=== PATIENT | male | born 1950 | race Caucasian/White ===

== ENCOUNTER 2016-09-24 14:22 | Emergency (ER) | payer BC, OTHER ==
[~2016-09-24 14:22] MED LIST changes: -ALLO300T2 PO; -ASPI325T4 PO; -CETI10TA84 PO; -FLAX100019 PO; -GABA-113 PO; -LOSA1TAB PO; -MULT-506 PO; -OXYC7.5T65 PO; -OXYCODONE PO; -PRD75 PO; -RIVA1.5T PO; -RIVA1TAB4 PO; -SYN88 PO; -VENL37.593 PO
[2016-09-24 14:31] VITALS: TEMP 37; Ht 177.8 cm
[2016-09-24] MEDS ORDERED: RIVA1TAB4 PO (15:14)
[2016-09-24] MEDS ORDERED: RIVA1.5T PO (15:14)
[2016-09-24] MEDS ORDERED: RIVAROXABAN TAB 15 MG TAB PO ONE ×2 (15:15→16:00)
--- NOTE | 2016-09-24 15:15 | EMERGENCY ROOM VISIT NOTE ---
History Report prepared by Kelsey: Mustapha Virk Under the Supervision of: Dr. Jey Longoria D.O. First contact with patient: 14:54 Chief Complaint: LEG PAIN,LEG INJURY Stated Complaint: PAIN/SWELLING IN LEFT LEG DVT History of Present Illness The patient is a 65 year old male who presents to the Emergency Room with complaints of persistent leg pain beginning 3 days ago. He notes he recently had left Achilles tendon surgery 2 weeks ago, and had his cast removed today. A DVT was noted on ultrasound after the cast removal. The patient notes he had a PE 17 years ago, and had been put on Coumadin at this time. He notes having a history of bladder cancer, kidney stones, and spinal fusion. Source of History: patient Onset: 3 days ago Position: leg (left) Quality: other (lep pain) Timing: other (persistent) Associated Symptoms: + weakness Review of Systems See HPI for pertinent positives & negatives. A total of 10 systems reviewed and were otherwise negative. Past Medical & Surgical Medical Problems: (1) History of bladder cancer (2) History of kidney stones Surgical Problems: (1) History of spinal fusion Family History No pertinent family history stated. Social History Smoking Status: Never Smoker Current/Historical Medications Scheduled Allopurinol (Zyloprim *), 100 MG PO DAILY Citalopram (Celexa *), 20 MG PO DAILY Cyclobenzaprine Hcl (Flexeril *), 5 MG PO BID Fenofibrate (Antara), 130 MG PO DAILY Hydrocodone/Acetaminophen 5MG/500MG (Vicodin 5MG/500MG), 1 TABLET PO Q4HR PRN Lisinopril (Zestril), 20 MG PO DAILY Rivaroxaban (Xarelto), 15 MG PO BID Rivaroxaban (Xarelto), 1 TAB PO DAILY [Roxicet], 5-325 PRN Allergies Coded Allergies: Latex1 -Allergic Contact Dermititis (Verified Allergy, Mild, RASH, 12/20/09 ) Sulfa Drugs (Verified Allergy, Unknown, RASH,BURNING, 07/14/09) Physical Exam Vital Signs Date Time Temp Pulse Resp B/P Pulse Ox O2 Delivery O2 Flow Rate FiO2 09/24/16 14:31 37.0 91 16 118/75 98 Physical Exam CONSTITUTIONAL/VITAL SIGNS: Reviewed / noted above. GENERAL: Non-toxic in appearance. INTEGUMENTARY: Warm, dry, and [place]. HEAD: Normocephalic. EYES: without scleral icterus or trauma. ENT/OROPHARYNX: clear and moist. LYMPHADENOPATHY/NECK: Is supple without lymphadenopathy or meningismus. RESPIRATORY: Lungs clear and equal. CARDIOVASCULAR: Regular rate and rhythm. GI/ABDOMEN: Soft and nontender. No organomegaly or pulsatile mass. No rebound or guarding. Normal bowel sounds. EXTREMITIES: Left lower extremity swelling. BACK: No CVA tenderness. NEUROLOGICAL: Intact without focal deficits. PSYCHIATRIC: normal affect. MUSCULOSKELETAL: Normally developed with good muscle tone. Medical Decision & Procedures ER Provider Diagnostic Interpretation: Radiology results as stated below per my review and radiologist interpretation: LEFT LOWER EXTREMITY VENOUS DOPPLER FINDINGS: Extensive thrombus seen within the superficial femoral vein, popliteal vein, peroneal, posterior tibial, and anterior tibial veins. The common femoral vein is patent. IMPRESSION: Acute DVT throughout the majority of the left lower extremity. Electronically signed by: Ilan Hung M.D. 09/24/2016 2:03 PM Dictated Date/Time: 09/24/2016 2:01 PM ED Course 1455: Previous medical records were reviewed. The patient was evaluated in room C11B. A complete history and physical examination was performed. 1505: Discussed the patient's case with Dr. Fine who recommends anticoagulation medication. 1515: Ordered Xarelto Tab 15 mg PO. 1520: On reevaluation, the patient is doing well. I discussed the results and findings with the patient. He verbalized agreement of the treatment plan. The patient was discharged home. Medical Decision Differential diagnosis: Etiologies such as DVT, musculoskeletal, infection, joint effusion, trauma, lymphedema, idiopathic, CHF, as well as others were entertained.. This is a 65-year-old male who presents to the ED with a chief complaint of left leg discomfort. He had an outpatient ultrasound that showed an extensive left leg DVT. The patient has had left Achilles tendon repair a little over 2 weeks ago. The cast was removed today. The patient does have history of PE in the past. He is currently not on anticoagulation. He states that he has been on Coumadin the past but does not want to be on Coumadin. I spoke with Dr. Fine about the patient. He does not feel anything other than anticoagulation is necessary. The patient was started on Xaralto. Consults Time Called: 1500 Consulting Physician: Dr. Fine, [facility] Returned Call: 1505 Discussed the patient's case with Dr. Fine who recommends anticoagulation medication. Impression Primary Impression: Deep vein thrombosis Scribe Attestation The scribe's documentation has been prepared under my direction and personally reviewed by me in its entirety. I confirm that the note above accurately reflects all work, treatment, procedures, and medical decision making performed by me. Departure Information Dispostion Home / Self-Care Prescriptions Rivaroxaban (XARELTO) 20 Mg Tab 1 TAB PO DAILY for 30 Days, #30 TAB 4 Refills Prov: Jey Longoria D.O. 09/24/16 Rivaroxaban (XARELTO) 15 Mg Tab 15 MG PO BID for 21 Days, #42 TAB Prov: Jey Longoria D.O. 09/24/16 Referrals Kavon Wu D.O. (PCP) Patient Instructions DVT, My [facility] Additional Instructions Take Xarelto 15mg twice a day for 3 weeks then 20mg daily for at least 3 months or as per you doctor. Follow-up with your doctor for further care and evaluation in 1-2 weeks. Return to the emergency department for worsening or new symptoms or any concerns. You have been examined and treated today on an emergency basis only. This is not a substitute for, or an effort to provide, complete comprehensive medical care. It is impossible to recognize and treat all injuries or illnesses in a single emergency department visit. It is therefore important that you follow up closely with your doctor. Call as soon as possible for an appointment.
--- NOTE | 2016-09-24 16:10 | Pharmacy Progress Note ---
ED Pharmacist Progress Note Date of Service: Sep 24, 2016. Patient wishes to be placed on Xarelto for treatment of lower extremity DVT as he states he has had difficulty with warfarin in the past. I contacted the patient's pharmacy [facility] in [place] to determine if the medication was covered. The pharmacist stated the 15mg BID x 21 days would roughly cost the patient $270.00 on his Rx plan. Apixaban is not covered by his insurance. The patient seemed willing to pay the higher rivera if necessary. I did provide the patient with a card from [employer] that may provide a 30-days supply for eligible patients. It is unclear if he is eligible. He will receive a dose of Xarelto 15mg here and will have a 15mg dose sent home with him to take in the AM as his pharmacy ([facility]) does not have this medication in stock. But they will order it and have it available tomorrow afternoon. Patient was counseled on s/s excess anticoagulation, avoidance of high risk activities (risks of fall or injury), drug interactions, action to take if unusual bleeding occurs. Written materials also provided.
[2016-09-24] MEDS ORDERED: FLAX100019 PO (16:14)
[2016-09-24] MEDS ORDERED: ASPI325T4 PO (16:14)
[2016-09-24] MEDS ORDERED: OXYCODONE PO (16:15)
[2016-09-24 16:24] VITALS: BP 115/71; PULSE 86; O2SAT 99
[2016-12-20] MEDS ORDERED: CETI10TA84 PO (16:14)
[2016-12-20] MEDS ORDERED: GABA-113 PO ×2 (16:14→18:50)
[2016-12-20] MEDS ORDERED: SYN88 PO (16:14)
[2016-12-20] MEDS ORDERED: MULT-506 PO (16:14)
[2016-12-20] MEDS ORDERED: LOSA1TAB PO (16:14)
== END 2016-09-24 16:26 | disposition home or self-care (01) ==
LOC: C.EDB 14:29 → C.EDC 16:26
DX: I82.4Z2 Acute embolism and thrombosis of unspecified deep veins of left distal lower extremity (principal); Z85.51 Personal history of malignant neoplasm of bladder; Z87.442 Personal history of urinary calculi; Z86.711 Personal history of pulmonary embolism; Z79.899 Other long term (current) drug therapy

== ENCOUNTER → 2016-09-24 | Outpatient (CLI) | payer BC, OTHER ==
[~2016-09-24] MED LIST: ALL100 PO; ALLO300T2 PO; ASPI325T4 PO; CETI10TA84 PO; CLX20 PO; FENO130C2 PO; FLAX100019 PO; FLX10 PO; GABA-113 PO; LISI-725 PO; LOSA1TAB PO; LRT5 PO; MULT-506 PO; OXYC7.5T65 PO; OXYCODONE PO; PRD75 PO; RIVA1.5T PO; RIVA1TAB4 PO; ROXICET; SYN88 PO; VENL37.593 PO
--- NOTE | 2016-09-24 14:05 | DIAGNOSTIC IMAGING REPORT ---
LEFT LOWER EXTREMITY VENOUS DOPPLER HISTORY: PAIN AND SWELLING IN LEFT LEG; R/O DVT STAT COMPARISON STUDY: None. FINDINGS: Extensive thrombus seen within the superficial femoral vein, popliteal vein, peroneal, posterior tibial, and anterior tibial veins. The common femoral vein is patent. IMPRESSION: Acute DVT throughout the majority of the left lower extremity. Electronically signed by: Ilan Hung M.D. 09/24/2016 2:03 PM Dictated Date/Time: 09/24/2016 2:01 PM
== END | disposition home or self-care (01) ==
LOC: C.ULTR 13:20
PROVIDERS: ATTEND Orthopaedic Surgery Sports Medicine
DX: Z48.89 Encounter for other specified surgical aftercare (principal); I82.402 Acute embolism and thrombosis of unspecified deep veins of left lower extremity

== ENCOUNTER → 2016-10-14 | Outpatient (CLI) | payer BC, OTHER ==
[~2016-10-14] MED LIST changes: -ALL100 PO; +ALLO300T2 PO; +ASPI325T4 PO; +CETI10TA84 PO; -CLX20 PO; -FENO130C2 PO; +FLAX100019 PO; -FLX10 PO; +GABA-113 PO; -LISI-725 PO; +LOSA1TAB PO; -LRT5 PO; +MULT-506 PO; +OXYC7.5T65 PO; +OXYCODONE PO; +PRD75 PO; +RIVA1.5T PO; +RIVA1TAB4 PO; -ROXICET; +SYN88 PO; +VENL37.593 PO
[2016-10-14 19:15] LABS: BLOOD UREA NITROGEN 21 mg/dl (7-18); BUN/CREATININE RATIO 14.7 (10-20); CALCIUM 9.1 mg/dl (8.5-10.1); CARBON DIOXIDE 27 mmol/L (21-32); CHLORIDE 106 mmol/L (98-107); GLUCOSE 86 mg/dl (70-99); POTASSIUM 3.9 mmol/L (3.5-5.1); SODIUM 141 mmol/L (136-145); URIC ACID 4.3 mg/dl (2.6-7.2)
[2016-10-14 19:29] LABS: PROSTATE SPECIFIC ANTIGEN 0.316 ng/ml (0.000-4.000)
== END | disposition home or self-care (01) ==
LOC: C.LABMFLN 08:56
PROVIDERS: ATTEND Family Medicine
DX: Z00.00 Encounter for general adult medical examination without abnormal findings (principal); I10 Essential (primary) hypertension; N20.0 Calculus of kidney; E03.9 Hypothyroidism, unspecified; Z12.5 Encounter for screening for malignant neoplasm of prostate; E29.1 Testicular hypofunction

== ENCOUNTER → 2016-10-21 | Outpatient (CLI) | payer BC, OTHER ==
[2016-10-21 13:34] LABS: URINE APPEARANCE CLEAR (CLEAR); URINE BILIRUBIN NEG (NEG); URINE COLOR YELLOW; URINE EPITHELIAL CELL AUTO 0-5 /lpf (0-5); URINE NITRITE NEG (NEG); URINE SPECIFIC GRAVITY 1.026 (1.000-1.030); UROBILINOGEN NEG (NEG); ZZUR CULT IF INDIC CLEAN CATCH NO
[2016-10-21 13:39] LABS: MANUAL MICROSCOPIC REQUIRED? NO; REVIEW REQ? NO
== END ==
LOC: C.LABMFLN 15:16
PROVIDERS: ATTEND Family Medicine
DX: N45.1 Epididymitis (principal)

== ENCOUNTER 2016-12-20 16:37 | Inpatient (IN) | payer BC, OTHER ==
[~2016-12-20] VITALS: Ht 177.8 cm; Wt 89.5 kg
[~2016-12-20 16:37] MED LIST changes: -ALLO300T2 PO; -OXYC7.5T65 PO; -PRD75 PO; -VENL37.593 PO
--- NOTE | 2016-12-20 18:28 | EMERGENCY ROOM VISIT NOTE ---
History Report prepared by Kelsey: Melissa Mendez Under the Supervision of: Dr. Steven Montero D.O. First contact with patient: 18:20 Chief Complaint: LEG PAIN,LEG INJURY Stated Complaint: BLOOD CLOTS IN LF LEG History of Present Illness The patient is a 65 year old male who presents to the Emergency Room with complaints of a known clot in his left leg. He reports he underwent surgery on his Achilles tendon 3 months ago. Since then, his left leg has become increasingly swollen. He started taking Xarelto 2 months ago and notes he has been very inactive since the surgery. This afternoon, he saw his PCP, who referred him to the [facility] for an ultrasound. After getting the ultrasound, his PCP called him at home and told him to go to an ER for further treatment. The patient rates the pain from his leg as a 7/10 in severity. He admits to some shortness of breath, but denies any chest pain. The ED charge nurse reports Dr. Mcmullen recommended the patient come to the ED for IV Heparin, after speaking with Dr. Fine at [facility]. Source of History: patient Onset: [employer] Position: leg (left) Symptom Intensity: 7/10 Timing: constant Associated Symptoms: + SOB, No chest pain Review of Systems See HPI for pertinent positives & negatives. A total of 10 systems reviewed and were otherwise negative. Past Medical & Surgical Medical Problems: (1) Deep vein blood clot of left lower extremity (2) Failure of outpatient treatment (3) History of bladder cancer (4) History of kidney stones (5) Left leg DVT Surgical Problems: (1) History of spinal fusion Social History Smoking Status: Never Smoker Alcohol Use: none Drug Use: none Marital Status: Housing Status: lives with family Occupation Status: employed Current/Historical Medications Scheduled Allopurinol (Zyloprim), 300 MG PO DAILY Cetirizine (Zyrtec), 10 MG PO DAILY Gabapentin (Neurontin), 300 MG PO QPM Levothyroxine Sodium (Synthroid), 88 MCG PO QAM Losartan Potassium (Cozaar), 12.5 MG PO QAM Multivitamin (Multivitamin), 1 TAB PO DAILY Rivaroxaban (Xarelto), 20 MG PO DAILY Venlafaxine Hcl (Venlafaxine Extended Rel), 37.5 MG PO QPM Allergies Coded Allergies: Sulfa Drugs (Verified Allergy, Unknown, RASH,BURNING, 09/24/16) Physical Exam Vital Signs Date Time Temp Pulse Resp B/P (MAP) Pulse Ox O2 Delivery O2 Flow Rate FiO2 12/20/16 19:21 74 12/20/16 19:00 75 18 126/83 99 Room Air 12/20/16 16:43 36.7 74 18 137/83 100 Physical Exam GENERAL: Patient is awake, alert, in no acute distress, patient is resting comfortably and showing no signs of anxiety EYES: The conjunctivae are clear. The pupils are round and reactive. EARS, NOSE, MOUTH AND THROAT: The nose is without any evidence of any deformity. Mucous membranes are moist tongue is midline NECK: The neck is nontender and supple. RESPIRATORY: Normal respiratory effort is noted there is no evidence of wheezing rhonchi or rales CARDIOVASCULAR: Regular rate and rhythm noted there no murmurs rubs or gallops normal S1 normal S2 GASTROINTESTINAL: The abdomen is soft. Bowel sounds are present in all quadrants. Abdomen is nontender MUSCULOSKELETAL/EXTREMITIES: There is no evidence of gross deformity full range of motion is noted in the hips and shoulders SKIN: Pedal edema in the left, lower extremity. Calf tenderness as well as tenderness along the course of the popliteal vein. There is no obvious evidence of any rash. There are no petechiae, pallor or cyanosis noted. NEUROLOGIC: Patient is awake alert and oriented x3 strength is symmetric patellar reflexes are 2+ bilaterally Medical Decision & Procedures Laboratory Results 12/20/16 19:05 Red Blood Count 4.40, Mean Corpuscular Volume 95.0, Mean Corpuscular Hemoglobin 32.5, Mean Corpuscular Hemoglobin Concent 34.2, Mean Platelet Volume 9.5, Neutrophils (%) (Auto) 51.0, Lymphocytes (%) (Auto) 38.0, Monocytes (%) (Auto) 9.0, Eosinophils (%) (Auto) 1.6, Basophils (%) (Auto) 0.1, Neutrophils # (Auto) 3.41, Lymphocytes # (Auto) 2.54, Monocytes # (Auto) 0.60, Eosinophils # (Auto) 0.11, Basophils # (Auto) 0.01 12/20/16 19:05 Test 12/20/16 19:05 White Blood Count 6.69 K/uL (4.8-10.8) Red Blood Count 4.40 M/uL (4.7-6.1) Hemoglobin 14.3 g/dL (14.0-18.0) Hematocrit 41.8 % (42-52) Mean Corpuscular Volume 95.0 fL (80-100) Mean Corpuscular Hemoglobin 32.5 pg (25-34) Mean Corpuscular Hemoglobin Concent 34.2 g/dl (32-36) Platelet Count 152 K/uL (130-400) Mean Platelet Volume 9.5 fL (7.4-10.4) Neutrophils (%) (Auto) 51.0 % Lymphocytes (%) (Auto) 38.0 % Monocytes (%) (Auto) 9.0 % Eosinophils (%) (Auto) 1.6 % Basophils (%) (Auto) 0.1 % Neutrophils # (Auto) 3.41 K/uL (1.4-6.5) Lymphocytes # (Auto) 2.54 K/uL (1.2-3.4) Monocytes # (Auto) 0.60 K/uL (0.11-0.59) Eosinophils # (Auto) 0.11 K/uL (0-0.5) Basophils # (Auto) 0.01 K/uL (0-0.2) RDW Standard Deviation 47.0 fL (36.4-46.3) RDW Coefficient of Variation 13.6 % (11.5-14.5) Immature Granulocyte % (Auto) 0.3 % Immature Granulocyte # (Auto) 0.02 K/uL (0.00-0.02) Prothrombin Time 13.2 SECONDS (9.0-12.0) Prothromb Time International Ratio 1.2 (0.9-1.1) Activated Partial Thromboplast Time 31.3 SECONDS (21.0-31.0) Partial Thromboplastin Ratio 1.2 Anion Gap 9.0 mmol/L (3-11) Est Creatinine Clear Calc Drug Dose 64.6 ml/min Estimated GFR () 66.8 Estimated GFR (Non- 57.7 BUN/Creatinine Ratio 15.4 (10-20) Calcium Level 9.1 mg/dl (8.5-10.1) Total Bilirubin 0.4 mg/dl (0.2-1) Direct Bilirubin 0.1 mg/dl (0-0.2) Aspartate Amino Transf (AST/SGOT) 23 U/L (15-37) Alanine Aminotransferase (ALT/SGPT) 31 U/L (12-78) Alkaline Phosphatase 65 U/L (45-117) Total Protein 7.3 gm/dl (6.4-8.2) Albumin 3.7 gm/dl (3.4-5.0) Hepatitis C Antibody Screen NEG (NEG) Laboratory results per my review. Medications Administered Medications (Trade) Dose Ordered Sig/Judy Route Start Time Stop Time Status Last Admin Dose Admin Heparin Sodium/ Dextrose 1 ea NOW STAT N/A 12/20/16 18:45 12/20/16 18:47 DC 12/20/16 20:09 1 EA Oxycodone HCl (Roxicodone Immediate Rel Tab) 5 mg NOW STAT PO 12/20/16 19:55 12/20/16 19:56 DC 12/20/16 20:09 5 MG Heparin Sodium/ Dextrose (Heparin 25,000 Unit/500ml D5W) 25,000 unit STK-MED ONCE .ROUTE 12/20/16 20:01 12/20/16 20:02 DC 12/20/16 20:09 25,000 UNIT Zolpidem Tartrate (Ambien Tab) 5 mg HSZ PRN PO 12/20/16 20:15 01/19/17 20:14 12/20/16 23:43 5 MG ED Course 1820: The patient was evaluated in room C4. A complete history and physical examination were performed. 1844: Heparin Sodium/Dextrose 1 ea NA. 1936: I discussed the patients case with Dr. Blue, [facility] Hospitalist. The patient will be further evaluated. 1944: I reevaluated the patient. He is resting comfortably but complains of pain. I will put in medication orders. I discussed my recommendation that he remain in the hospital for further evaluation and management and he verbalized complete understanding and agreement. 1954: Oxycodone HCl 5 mg PO. 2000: Heparin Sodium/Dextrose 56064 unit IV. Medical Decision Medication Reconciliation: I attest that I have personally reviewed the patient' s current medications list. Blood pressure screening: Patient was found to have normal blood pressure on screening and does not require follow-up. Prior records reviewed and summarized above. Triage Nursing notes reviewed. The patient's history was concerning for swelling and pain in the leg. Differential diagnosis: Etiologies such as DVT, musculoskeletal, infection, joint effusion, trauma, lymphedema, idiopathic, CHF, as well as others were entertained.. The patient is a 65-year-old male who presents to the emergency department for ongoing pain and DVT despite outpatient therapy. The patient was seen by his primary care physician and a vascular surgeon was consult. The patient was sent to the emergency department for IV heparin and inpatient therapy for ongoing DVT as well as failure of outpatient therapy. The patient was started on IV heparin in the emergency department. I discussed his case with the on-call [facility] hospitalist. They've agreed to evaluate the patient in emergency department for further management and disposition. Consults Time Called: 1933 Consulting Physician: Dr. Blue [facility] Hospitalist Returned Call: 1936 [facility] the [facility] The patient will be further evaluated. Impression Primary Impression: Deep vein thrombosis Additional Impression: Failure of outpatient treatment Scribe Attestation The scribe's documentation has been prepared under my direction and personally reviewed by me in its entirety. I confirm that the note above accurately reflects all work, treatment, procedures, and medical decision making performed by me. Departure Information Dispostion Being Evaluated By Hospitalist Referrals Wicho Mcmullen M.D. (PCP) Patient Instructions My [facility] Problem Qualifiers Primary Impression: Deep vein thrombosis DVT location: lower extremity Affected thrombotic vein of extremity: unspecified vein of extremity Chronicity: acute Laterality: left Qualified Codes: I82.402 - Acute embolism and thrombosis of unspecified deep veins of left lower extremity
[2016-12-20] MEDS ORDERED: RIVA1TAB4 PO (18:44)
[2016-12-20] MEDS ORDERED: GABA-113 PO (18:50)
[2016-12-20] MEDS ORDERED: VENL37.593 PO (18:50)
[2016-12-20] MEDS ORDERED: ALLO300T2 PO (18:50)
[2016-12-20 19:25] LABS: BASO % 0.1 %; BASO ABS # 0.01 K/uL (0-0.2); COMPLETE YES; EOS % 1.6 %; HEMATOCRIT 41.8 % (42-52); IG% 0.3 %; LYMPH ABS # 2.54 K/uL (1.2-3.4); MEAN CORPUSCULAR HEMOGLOBIN 32.5 pg (25-34); MEAN CORPUSCULAR HGB CONC 34.2 g/dl (32-36); MEAN PLATELET VOLUME 9.5 fL (7.4-10.4); PLATELET COUNT 152 K/uL (130-400); WHITE BLOOD COUNT 6.69 K/uL (4.8-10.8)
[2016-12-20 19:35] LABS: INR 1.2 (0.9-1.1); PARTIAL THROMBOPLASTIN RATIO 1.2; PROTHROMBIN TIME (PATIENT) 13.2 SECONDS (9.0-12.0)
[2016-12-20 19:43] LABS: BUN/CREATININE RATIO 15.4 (10-20); CALCIUM 9.1 mg/dl (8.5-10.1); CREATININE 1.3 mg/dl (0.60-1.40); POTASSIUM 3.8 mmol/L (3.5-5.1)
[2016-12-20] MEDS ORDERED: OXYCODONE HCL IR 5 MG TAB (IMMEDIATE RELEASE) PO STA (19:55)
[2016-12-20] MEDS ORDERED: HEPARIN 25000 UNIT/500 ML D5W ONE (20:01)
[2016-12-20] MEDS ORDERED: ONDANSETRON INJ 2 MG/ML 2 ML VIAL IV PRN (20:15)
[2016-12-20] MEDS ORDERED: POLYETHYLENE (MIRALAX) 17 GM PACK PO PRN (20:15)
[2016-12-20] MEDS ORDERED: ALUMINUM/MAGNESIUM/SIMETH (MAALOX MAX) 30 ML UDC PO PRN (20:15)
[2016-12-20] MEDS ORDERED: ACETAMINOPHEN 325 MG TAB PO PRN (20:15)
[2016-12-20] MEDS ORDERED: MAGNESIUM HYDROXIDE SUSP 30 ML UDC PO PRN (20:15)
--- NOTE | 2016-12-20 20:20 | History and Physical ---
History & Physical Date & Time of Service: Dec 20, 2016 at 20:20 Chief Complaint: Blood Clots In Lf Leg Primary Care Physician: Wicho Mcmullen M.D. History of Present Illness Source: patient, family Mr. 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 He initially had left Achilles tendon surgery around September 07 of this year. He had a cast placed, and after this was removed, he noticed some swelling , so came to the ED on September 24. He was diagnosed with a DVT, and started on Xarelto, which he reports he was compliant with. Since being on Xarelto, he has noticed persistent swelling of the left ankle, and has not noticed much improvement. He spoke to his PCP Dr Mcmullen, was unable to be seen by an outpatient accounts adjustable clerk, and earlier today had a repeat ultrasound of the leg at [facility]. After returning home he was called and informed of the ultrasound showed a DVT had worsened, and was advised to come to the ER at our hospital. Dr. Mcmullen and discussed this with Dr. Fine who recommended placing the patient on a heparin drip. He denies any shortness of breath, chest pain, any other symptoms of PE. He reports he was very compliant with his Xarelto. Past Medical/Surgical History Medical Problems: (1) Deep vein blood clot of left lower extremity (2) Failure of outpatient treatment (3) History of bladder cancer (4) History of kidney stones (5) Left leg DVT Surgical Problems: (1) History of spinal fusion (2) shoulder surgery x 3 (3) Achilles tendon surgery Family History No pertinent family history. He denies any other people in his family having blood clots or PE. Social History Smoking Status: Never Smoker Alcohol Use: socially Drug Use: none Marital Status: Occupational Status: employed Immunizations History of Influenza Vaccine: Yes Influenza Vaccine Date: Feb 17, 2008 History of Tetanus Vaccine?: No History of Pneumococcal: Yes Pneumococcal Date: Nov 17, 2003 History of Hepatitis B Vaccine: Yes Hepatitis Immunization Date: Nov 16, 1992 Multi-Drug Resistant Organisms History of MDRO: No Allergies Coded Allergies: Sulfa Drugs (Verified Allergy, Unknown, RASH,BURNING, 09/24/16) Home Medications Scheduled Allopurinol (Zyloprim), 300 MG PO DAILY Cetirizine (Zyrtec), 10 MG PO DAILY Gabapentin (Neurontin), 300 MG PO QPM Levothyroxine Sodium (Synthroid), 88 MCG PO QAM Losartan Potassium (Cozaar), 12.5 MG PO QAM Multivitamin (Multivitamin), 1 TAB PO DAILY Rivaroxaban (Xarelto), 20 MG PO DAILY Venlafaxine Hcl (Venlafaxine Extended Rel), 37.5 MG PO QPM Review of Systems See HPI for pertinent positives & negatives. A total of 10 systems reviewed and were otherwise negative. Physical Exam Vital Signs Date Time Temp Pulse Resp B/P (MAP) Pulse Ox O2 Delivery O2 Flow Rate FiO2 12/20/16 19:21 74 12/20/16 19:00 75 18 126/83 99 Room Air 12/20/16 16:43 36.7 74 18 137/83 100 General Appearance: WD/WN, + mild distress Head: normocephalic, atraumatic Eyes: normal inspection, PERRL ENT: hearing grossly normal Neck: supple, no JVD Respiratory/Chest: lungs clear, normal breath sounds, no respiratory distress Cardiovascular: regular rate, rhythm, no murmur Abdomen/GI: normal bowel sounds, non tender, soft Back: no CVA tenderness, no muscle spasm, normal range of motion Extremities/Musculoskelatal: + pertinent finding (Left pedal edema up to ankle , pitting +2. No evidence of cellulitis. ) Neurologic/Psych: alert, normal mood/affect, normal reflexes, oriented x 3 Skin: warm/dry Diagnostics Laboratory Results Results Past 24 Hours Test 12/20/16 19:05 Range/Units White Blood Count 6.69 4.8-10.8 K/uL Red Blood Count 4.40 4.7-6.1 M/uL Hemoglobin 14.3 14.0-18.0 g/dL Hematocrit 41.8 42-52 % Mean Corpuscular Volume 95.0 80-100 fL Mean Corpuscular Hemoglobin 32.5 25-34 pg Mean Corpuscular Hemoglobin Concent 34.2 32-36 g/dl Platelet Count 152 130-400 K/uL Mean Platelet Volume 9.5 7.4-10.4 fL Neutrophils (%) (Auto) 51.0 % Lymphocytes (%) (Auto) 38.0 % Monocytes (%) (Auto) 9.0 % Eosinophils (%) (Auto) 1.6 % Basophils (%) (Auto) 0.1 % Neutrophils # (Auto) 3.41 1.4-6.5 K/uL Lymphocytes # (Auto) 2.54 1.2-3.4 K/uL Monocytes # (Auto) 0.60 0.11-0.59 K/uL Eosinophils # (Auto) 0.11 0-0.5 K/uL Basophils # (Auto) 0.01 0-0.2 K/uL RDW Standard Deviation 47.0 36.4-46.3 fL RDW Coefficient of Variation 13.6 11.5-14.5 % Immature Granulocyte % (Auto) 0.3 % Immature Granulocyte # (Auto) 0.02 0.00-0.02 K/uL Prothrombin Time 13.2 9.0-12.0 SECONDS Prothromb Time International Ratio 1.2 0.9-1.1 Activated Partial Thromboplast Time 31.3 21.0-31.0 SECONDS Partial Thromboplastin Ratio 1.2 Sodium Level 141 136-145 mmol/L Potassium Level 3.8 3.5-5.1 mmol/L Chloride Level 105 98-107 mmol/L Carbon Dioxide Level 27 21-32 mmol/L Anion Gap 9.0 3-11 mmol/L Blood Urea Nitrogen 20 7-18 mg/dl Creatinine 1.30 0.60-1.40 mg/dl Est Creatinine Clear Calc Drug Dose 64.6 ml/min Estimated GFR () 66.8 Estimated GFR (Non- 57.7 BUN/Creatinine Ratio 15.4 10-20 Random Glucose 80 70-99 mg/dl Calcium Level 9.1 8.5-10.1 mg/dl Total Bilirubin 0.4 0.2-1 mg/dl Direct Bilirubin 0.1 0-0.2 mg/dl Aspartate Amino Transf (AST/SGOT) 23 15-37 U/L Alanine Aminotransferase (ALT/SGPT) 31 12-78 U/L Alkaline Phosphatase 65 45-117 U/L Total Protein 7.3 6.4-8.2 gm/dl Albumin 3.7 3.4-5.0 gm/dl Diagnostic Radiology DVT REPORT FROM ED VISIT 09/24/16 - I am awaiting report from [employer] LEFT LOWER EXTREMITY VENOUS DOPPLER FINDINGS: Extensive thrombus seen within the superficial femoral vein, popliteal vein, peroneal, posterior tibial, and anterior tibial veins. The common femoral vein is patent. IMPRESSION: Acute DVT throughout the majority of the left lower extremity. Impression Assessment and Plan 65 yo M with known bladder Ca, recent achilles tendon surgery, causing a provoked DVT, which has now failed outpatient treatment with Xarelto. Deep vein thrombus of the Left extremity, failed outpatient tx - Will place pt on Heparin drip - May require an IVC filter, if so pt is NPO for tomorrow - Consulted Dr Fine - Elevate extremity overnight - DC Xarelto today Anxiety / Depression - Continue Venlafaxine HTN - Continue Losartan Peripheral neuropathy - Continue gabapentin VTE: Heparin drip CODE STATUS: Full Dispo: Med Surg Attending Addendum: I have physically seen and examined this patient, have supervised the medical residents activities, and agree with the H&P as noted above with the following exceptions: NONE The patient is awake, well-developed and adequately nourished, alert and oriented 3, normocephalic and atraumatic, lying in bed and in no acute distress. HEENT--PERRL, EOMI, mucous membranes and oropharynx normal. Neck--supple, no JVD or bruits, thyroid normal, trachea midline, no adenopathy. Heart--normal S1 and S2, no extra beats, no murmurs, rubs or gallops. Lungs--clear bilaterally with good air movement, no respiratory distress, no accessory muscle use. Abdomen--normal bowel sounds and soft, nontender and nondistended, no hernias or masses, no organomegaly. Extremities/Dermatologic--right lower extremity-no cyanosis, clubbing or edema. Left lower extremity with swelling, mild erythema and tenderness. Neurologic--cranial nerves II through XII grossly intact, motor and sensory examination normal. Rheumatologic--normal range of motion, nontender, muscles and joints. Psychiatric--normal affect. Assessment and Plan: 1. Left lower extremity DVT that has failed outpatient therapy with Xarelto-- patient will be admitted to the hospital and placed on heparin IV infusion standard dose with bolus per protocol. Consult Dr. Fine, who has asked the patient be admitted. DC Xarelto Continue losartan for hypertension. Continue venlafaxine for anxiety and depression. Continue gabapentin for peripheral neuropathy. VTE Prophylaxis VTE Risk Assessment Done? Y/N: Yes Risk Level: High Resident Tracking Resident Involvement: Resident Care Provided Care Provided: Adult Hospital Medicine
[2016-12-20 20:28] VITALS: BP 126/83; PULSE 74; TEMP 36.7; Ht 177.8 cm; Wt 89.5 kg
[2016-12-20] MEDS ORDERED: GABAPENTIN 300 MG CAP PO SCH (21:00)
[2016-12-20] MEDS ORDERED: IV FLUIDS COMPLETED PRN (21:00)
[2016-12-20] MEDS: GABAPENTIN 300 MG CAP PO SCH ×2 (21:00→22:30)
[2016-12-20] MEDS: VENLAFAXINE HCL XR 37.5 MG CAPXR PO SCH ×2 (21:00→22:30)
[2016-12-20] MEDS ORDERED: OXYCODONE/ACETAMINOPHEN 5-325 TAB PO PRN (21:45)
[2016-12-20 21:49] VITALS: BP 154/92; PULSE 78; TEMP 36.7; O2SAT 98
[2016-12-20 23:03] VITALS: BP 118/74; PULSE 85; TEMP 36.6; O2SAT 94
[2016-12-20] MEDS: HEPARIN 25,000 UNIT/500ML D5W 500 ML IV PRN (23:10)
[2016-12-20 23:17] LABS: URINE APPEARANCE CLEAR (CLEAR); URINE BILIRUBIN NEG (NEG); URINE COLOR YELLOW; URINE NITRITE NEG (NEG); URINE SPECIFIC GRAVITY 1.018 (1.000-1.030); UROBILINOGEN NEG (NEG)
[2016-12-20 23:18] LABS: MANUAL MICROSCOPIC REQUIRED? NO; REVIEW REQ? NO
[2016-12-20] MEDS: ZOLPIDEM TARTRATE 5 MG TAB PO PRN (23:43)
[2016-12-21 02:36] LABS: PARTIAL THROMBOPLASTIN RATIO 2.2
[2016-12-21] MEDS: LEVOTHYROXINE 88 MCG TAB PO SCH (05:27)
[2016-12-21] MEDS: HEPARIN 25,000 UNIT/500ML D5W 500 ML IV PRN ×6 (07:05→23:18)
[2016-12-21 07:30] VITALS: BP 104/68; PULSE 78; TEMP 36.7; O2SAT 95
[2016-12-21 07:30] LABS: HEMATOCRIT 39.1 % (42-52); MEAN CELL VOLUME 95.8 fL (80-100); MEAN CORPUSCULAR HEMOGLOBIN 32.8 pg (25-34); MEAN CORPUSCULAR HGB CONC 34.3 g/dl (32-36); MEAN PLATELET VOLUME 9.9 fL (7.4-10.4); PLATELET COUNT 147 K/uL (130-400); RED BLOOD COUNT 4.08 M/uL (4.7-6.1); WHITE BLOOD COUNT 6.23 K/uL (4.8-10.8)
[2016-12-21 08:04] LABS: PARTIAL THROMBOPLASTIN RATIO 2.7
--- NOTE | 2016-12-21 08:42 | Family Medicine Progress Note ---
Progress Note Date of Service Dec 21, 2016. Subjective Pt evaluation today including: conversation w/ patient, conversation w/ family , physical exam, chart review, lab review, review of studies, review of inpatient medication list Patient frustrated with DVT in leg and expressing discomfort in left lower calf in the form of fullness/cramping, but no paresthesias, burning, sharp pain, coldness, paralysis. He is also describing pain in left groin, but unsure if this is related to the same clot. Otherwise, patient well. He denies CP or SOB. He has been able to ambulate to and from the bed to the bathroom without issue/ symptom onset. No fevers or skin changes. Actually feels swelling in left leg has improved since being commenced on heparin drip. ROS unremarkable except as noted above. Objective Vital Signs Date Time Temp Pulse Resp B/P (MAP) Pulse Ox O2 Delivery O2 Flow Rate FiO2 12/21/16 07:30 36.7 78 19 104/68 (80) 95 Room Air 12/20/16 23:35 Room Air 12/20/16 23:03 36.6 85 15 118/74 (89) 94 Room Air 12/20/16 21:49 36.7 78 18 154/92 (112) 98 Room Air 12/20/16 21:04 36.7 78 16 134/70 99 Room Air 12/20/16 20:28 36.7 74 18 126/83 12/20/16 19:21 74 12/20/16 19:00 75 18 126/83 99 Room Air 12/20/16 16:43 36.7 74 18 137/83 100 Physical Exam General Appearance: WD/WN, no apparent distress ENT: hearing grossly normal Neck: supple Respiratory/Chest: lungs clear, normal breath sounds, no respiratory distress, no accessory muscle use Cardiovascular: regular rate, rhythm, no murmur, + normal peripheral pulses Abdomen: normal bowel sounds, non tender, soft Extremities: normal range of motion, normal capillary refill, + calf tenderness (L side), + pedal edema (left foot) Neurologic/Psychiatric: no motor/sensory deficits, alert, normal mood/affect Skin: normal color, warm/dry, no rash Lymphatic: no adenopathy Laboratory Results Results Past 24 Hours Test 12/21/16 07:01 12/21/16 15:30 12/21/16 22:14 Range/Units White Blood Count 6.23 4.8-10.8 K/uL Red Blood Count 4.08 4.7-6.1 M/uL Hemoglobin 13.4 14.0-18.0 g/dL Hematocrit 39.1 42-52 % Mean Corpuscular Volume 95.8 80-100 fL Mean Corpuscular Hemoglobin 32.8 25-34 pg Mean Corpuscular Hemoglobin Concent 34.3 32-36 g/dl RDW Standard Deviation 48.3 36.4-46.3 fL RDW Coefficient of Variation 13.8 11.5-14.5 % Platelet Count 147 130-400 K/uL Mean Platelet Volume 9.9 7.4-10.4 fL Activated Partial Thromboplast Time 71.4 75.5 67.8 21.0-31.0 SECONDS Partial Thromboplastin Ratio 2.7 2.9 2.6 Assessment and Plan 65 yo M with previous h/o of PE and DVT (2 previous occasions) admitted with provoked DVT secondary to recent Achilles tendon surgery, with worsening clot per imaging, despite compliant outpatient treatment with Xarelto. DVT of the left lower extremity Clot enlarged despite outpatient therapy with Xarelto. Not candidate for IVC filter as per vascular surgery- recs appreciated. - Continue Heparin drip - Will discuss transition of Pradaxa (direct thrombin inhibitor rather than 10a inhibitor like Xarelto) vs. warfarin vs. enoxaparin 1.5mg/kg with patient tomorrow - Discussed these options with Dr. Francis - Percocet 5/325mg q4h and IV morphine 4mg q4h PRN pain Anxiety / Depression - Venlafaxine HTN - Losartan Hypothyroidism - Levothyroxine Peripheral neuropathy - Gabapentin Gout - Allopurinol VTE PPx - Heparin drip CODE STATUS: Full Resident Physician Supervision Note: I interviewed and examined the patient. Discussed with Dr. Munguia and agree with findings and plan as documented in the note. Any exceptions or clarifications are listed here: None Documented By: Edilberto White leg pain still fairly bad. no filter. R2 d/w dr francis. hopefully can use pradaxa. vitals noted nad breathing unlabored no pallor or icterus recurrenet DVT failed xarelto - can hopefully use pradaxa. for now heparin, pain control. home once pain controlled. Continued [facility] stay due to: inadequate oral pain control, multiple IV medications needed Discharge planning: home Resident Tracking Resident Involvement: Resident Care Provided Care Provided: Adult Hospital Medicine
--- NOTE | 2016-12-21 08:45 | Medical Consult ---
Consultation Note Date of Service Dec 21, 2016. Consultation Note Discussed this patient with Dr Mcmullen. This patient appears to have not been adequately treated while on Xarelto. Would recommend he be placed on heparin and converted to coumadin. There is no indication for a filter. In this case i believe the Xarelto did not keep him adequately anticoagulated. We have seen a few failed Xarelto treated patients recently, especially if they are overweight. If you would like a formal consult and the patient seen, we can do it friday. Thank you
[2016-12-21] MEDS: ALLOPURINOL 300 MG TAB PO SCH (09:00)
[2016-12-21] MEDS: CETIRIZINE HCL 10 MG TAB PO SCH (09:00)
[2016-12-21] MEDS: LOSARTAN POTASSIUM 25 MG TAB PO SCH (09:00)
[2016-12-21] MEDS: MULTIVITAMIN TAB PO SCH (09:00)
[2016-12-21] MEDS ORDERED: RIVAROXABAN 10 MG TAB PO SCH (09:00)
[2016-12-21] MEDS ORDERED: OXYCODONE/ACETAMINOPHEN 5-325 TAB PO ONE (12:54)
[2016-12-21 15:37] VITALS: BP 113/72; PULSE 84; TEMP 36.9; O2SAT 94
[2016-12-21 16:08] LABS: PARTIAL THROMBOPLASTIN RATIO 2.9
[2016-12-21] MEDS ORDERED: MoRPHine SULFATE 4 MG/ML 1 ML CARP\\VIAL IV STA (18:29)
[2016-12-21] MEDS: OXYCODONE/ACETAMINOPHEN 5-325 TAB PO PRN ×2 (18:36→23:25)
[2016-12-21] MEDS: VENLAFAXINE HCL XR 37.5 MG CAPXR PO SCH (21:20)
[2016-12-21] MEDS: GABAPENTIN 300 MG CAP PO SCH (21:21)
[2016-12-21 23:05] LABS: PARTIAL THROMBOPLASTIN RATIO 2.6
[2016-12-21 23:06] VITALS: BP 121/79; PULSE 72; TEMP 36.8; O2SAT 94
[2016-12-21] MEDS: ZOLPIDEM TARTRATE 5 MG TAB PO PRN (23:25)
[2016-12-22] MEDS: MoRPHine SULFATE 4 MG/ML 1 ML CARP\\VIAL IV PRN (02:47)
[2016-12-22] MEDS: HEPARIN 25,000 UNIT/500ML D5W 500 ML IV PRN ×3 (02:52→15:19)
[2016-12-22 05:07] LABS: PARTIAL THROMBOPLASTIN RATIO 2.6
[2016-12-22] MEDS: LEVOTHYROXINE 88 MCG TAB PO SCH (05:45)
[2016-12-22 07:15] VITALS: O2SAT 94
[2016-12-22 07:21] VITALS: BP 114/73; PULSE 76; TEMP 36.8; O2SAT 95
[2016-12-22] MEDS: ALLOPURINOL 300 MG TAB PO SCH (08:48)
[2016-12-22] MEDS: OXYCODONE/ACETAMINOPHEN 5-325 TAB PO PRN ×3 (08:48→20:42)
[2016-12-22] MEDS: LOSARTAN POTASSIUM 25 MG TAB PO SCH (08:49)
[2016-12-22] MEDS: CETIRIZINE HCL 10 MG TAB PO SCH (08:49)
[2016-12-22] MEDS: MULTIVITAMIN TAB PO SCH (08:49)
[2016-12-22] MEDS ORDERED: TRAMADOL HCL 50 MG TAB PO STA (11:43)
[2016-12-22] MEDS ORDERED: TRAMADOL HCL 50 MG TAB PO PRN ×2 (11:45→19:45)
[2016-12-22 15:06] VITALS: BP 117/75; PULSE 80; TEMP 36.8; O2SAT 93
--- NOTE | 2016-12-22 16:22 | Family Medicine Progress Note ---
Progress Note Date of Service Dec 22, 2016. Subjective Pt evaluation today including: conversation w/ patient, conversation w/ family , physical exam, chart review, lab review, review of studies, review of inpatient medication list Patient had a difficult night in terms of sleep, as his leg was causing him significant discomfort. He feels that the Percocet was not helpful, but that the morphine did help reduce the severity of pain significantly. He has been ambulating to and from the washroom without issue, but not in the l[place]. He feels hindered by the IV pole, and as such, plans to ambulate more once heparin is discontinued. Decision of what anticoagulant he wants was pending, up until the evening. He denies, chest pain, dyspnea, palpitations, skin changes. His greatest source of pain is along the left groin, which is just proximal to the DVT. Pain in the lower leg seems to be contributed to by both the surgery and the associated swelling. ROS was unremarkable aside from that noted above. Objective Vital Signs Date Time Temp Pulse Resp B/P (MAP) Pulse Ox O2 Delivery O2 Flow Rate FiO2 12/22/16 15:06 36.8 80 16 117/75 (89) 93 Room Air 12/22/16 07:21 36.8 76 17 114/73 (87) 95 Room Air 12/22/16 07:15 94 Room Air 12/22/16 00:30 Room Air 12/21/16 23:06 36.8 72 16 121/79 (93) 94 Room Air Physical Exam General Appearance: WD/WN, no apparent distress ENT: hearing grossly normal Neck: supple Respiratory/Chest: lungs clear, normal breath sounds, no respiratory distress, no accessory muscle use Cardiovascular: regular rate, rhythm, no JVD, no murmur, + normal peripheral pulses Abdomen: normal bowel sounds, non tender, soft Extremities: normal inspection, + calf tenderness, + pedal edema, + swelling Neurologic/Psychiatric: alert, normal mood/affect, oriented x 3 Skin: normal color, warm/dry, no rash Lymphatic: no adenopathy Laboratory Results Results Past 24 Hours Test 12/21/16 22:14 12/22/16 04:44 Range/Units Activated Partial Thromboplast Time 67.8 66.6 21.0-31.0 SECONDS Partial Thromboplastin Ratio 2.6 2.6 Assessment and Plan 65 yo M with previous h/o of PE and DVT (2 previous occasions) admitted with provoked DVT secondary to recent Achilles tendon surgery, with worsening clot per imaging, despite compliant outpatient treatment with Xarelto. DVT of the left lower extremity Clot enlarged despite outpatient therapy with Xarelto. Not candidate for IVC filter as per vascular surgery- recs appreciated. Originally on heparin drip with transition to dabigatran, suggested as a reasonable option by Dr. Floyd since a direct thrombin inhibitor rather than 10a inhibitor like Xarelto - Discontinue Heparin drip 3 hours prior to commencing dabigatran q12h at 8pm Pain management Not well controlled with Tylenol or Percocet. Recently added tramadol. - Percocet 5/325mg q4h or tramadol 50mg q6h PRN pain - IV morphine 4mg q4h PRN pain as back up - TEDS ordered to aid with pain secondary to swelling. - Orthotics consulted - If pain not controlled, consider increased dose of tramadol prior to switching Anxiety / Depression - Venlafaxine HTN - Losartan Hypothyroidism - Levothyroxine Peripheral neuropathy - Gabapentin Gout - Allopurinol VTE PPx - Heparin drip CODE STATUS: Full Resident Physician Supervision Note: I interviewed and examined the patient. Discussed with [Nilda] and agree with findings and plan as documented in the note. Any exceptions or clarifications are listed here: [None] Documented By: Edilberto Tidwell pain still uncontrolled. R2 d/w anticoag physician and pradaxa reasonable - after considering this vs lovenox vs lovenox/bridge to coumadin - he opts for pradaxa. viatls noted nad breathing unlabored ongoing LLE edema no erythema DVT - anticoagulation transition to pradaxa. safe/stable but pain uncontrolled. initiate compression, increase tramadol. home once pain reasonable. extensive discussions as always. Continued [facility] stay due to: inadequate oral pain control Discharge planning: home Resident Tracking Resident Involvement: Resident Care Provided Care Provided: Adult Hospital Medicine
[2016-12-22] MEDS: TRAMADOL HCL 50 MG TAB PO PRN ×2 (18:35→22:46)
[2016-12-22] MEDS: GABAPENTIN 300 MG CAP PO SCH (20:41)
[2016-12-22] MEDS: DABIGATRAN ELEXILATE 75 MG CAP PO SCH (20:42)
[2016-12-22] MEDS: VENLAFAXINE HCL XR 37.5 MG CAPXR PO SCH (20:42)
[2016-12-22] MEDS: ZOLPIDEM TARTRATE 5 MG TAB PO PRN (20:47)
[2016-12-22 23:05] VITALS: BP 114/74; PULSE 72; TEMP 36.9; O2SAT 96
[2016-12-23] MEDS: MoRPHine SULFATE 4 MG/ML 1 ML CARP\\VIAL IV PRN (00:14)
[2016-12-23] MEDS: LEVOTHYROXINE 88 MCG TAB PO SCH (05:28)
[2016-12-23 07:12] VITALS: BP 113/69; PULSE 68; TEMP 36.6; O2SAT 95
[2016-12-23] MEDS: OXYCODONE/ACETAMINOPHEN 5-325 TAB PO PRN (07:49)
[2016-12-23] MEDS: MULTIVITAMIN TAB PO SCH (08:42)
[2016-12-23] MEDS: ALLOPURINOL 300 MG TAB PO SCH (08:43)
[2016-12-23] MEDS: DABIGATRAN ELEXILATE 75 MG CAP PO SCH ×2 (08:43→21:34)
[2016-12-23] MEDS: CETIRIZINE HCL 10 MG TAB PO SCH (08:43)
[2016-12-23] MEDS: LOSARTAN POTASSIUM 25 MG TAB PO SCH (08:48)
[2016-12-23] MEDS ORDERED: HEPARIN 25000 UNIT/ D5W 500 ML (PHARMACY PREPARED) IV PRN ×2 (10:45)
[2016-12-23] MEDS: OXYCODONE/ACETAMINOPHEN 7.5-325 TAB PO PRN ×3 (12:54→21:34)
[2016-12-23 15:02] VITALS: BP 129/77; PULSE 73; TEMP 37; O2SAT 93
--- NOTE | 2016-12-23 16:05 | Family Medicine Progress Note ---
Progress Note Date of Service Dec 23, 2016. Subjective Pt evaluation today including: conversation w/ patient, physical exam, chart review, lab review, review of studies Pain: patient states that his pain is a 5-7 out of 10 Voiding: no voiding problems, no incontinence Patient states that he has continued 5-7 out of 10 pain this morning, worst under his right thigh but also over his right calf along with burning over the dorsum of his foot. He states that his hydrocele is improving, and that overall he is feeling better but still having some significant pain. Constitutional: No fever, No chills Respiratory: No cough, No shortness of breath Cardiovascular: No chest pain Abdomen: No pain, No nausea, No vomiting Musculoskeletal: + muscle pain, + swelling, + calf pain Neurologic: No weakness Skin: No rash Medications Current Inpatient Medications Medications (Trade) Dose Ordered Sig/Judy Route Start Time Stop Time Status Last Admin Dose Admin Al Hydrox/Mg Hydrox/Simethicone (Maalox Max Susp) 15 ml Q4H PRN PO 12/20/16 20:15 01/19/17 20:14 Magnesium Hydroxide (Milk Of Magnesia Susp) 30 ml Q6H PRN PO 12/20/16 20:15 01/19/17 20:14 Polyethylene (Miralax Powder Packet) 17 gm DAILY PRN PO 12/20/16 20:15 01/19/17 20:14 Zolpidem Tartrate (Ambien Tab) 5 mg HSZ PRN PO 12/20/16 20:15 01/19/17 20:14 12/22/16 20:47 5 MG Ondansetron HCl (Zofran Inj) 4 mg Q6H PRN IV 12/20/16 20:15 01/19/17 20:14 12/22/16 05:47 4 MG Allopurinol (Zyloprim Tab) 300 mg DAILY PO 12/21/16 09:00 01/20/17 08:59 12/23/16 08:43 300 MG Cetirizine HCl (zyrTEC TAB) 10 mg DAILY PO 12/21/16 09:00 01/20/17 08:59 12/23/16 08:43 10 MG Gabapentin (Neurontin Cap) 300 mg QPM PO 12/20/16 21:00 01/19/17 20:59 12/22/16 20:41 300 MG Levothyroxine Sodium (Synthroid Tab) 88 mcg DAILYBB PO 12/21/16 06:00 01/20/17 06:59 12/23/16 05:28 88 MCG Losartan Potassium (coZAAR TAB) 12.5 mg QAM PO 12/21/16 09:00 01/20/17 08:59 12/23/16 08:48 12.5 MG Multivitamins (Multivitamin Tab) 1 tab DAILY PO 12/21/16 09:00 01/20/17 08:59 12/23/16 08:42 1 TAB Venlafaxine HCl (effeXOR EXTENDED REL CAP) 37.5 mg QPM PO 12/20/16 21:00 01/19/17 20:59 12/22/16 20:42 37.5 MG Miscellaneous (Iv Fluids Completed) 1 ea PRN PRN N/A 12/20/16 21:00 12/20/17 20:59 Morphine Sulfate (MoRPHine SULFATE INJ) 4 mg Q4H PRN IV 12/21/16 18:30 01/04/17 18:29 12/23/16 00:14 4 MG Dabigatran (Pradaxa Cap) 150 mg BID PO 12/22/16 20:00 01/21/17 19:59 12/23/16 08:43 150 MG Oxycodone/ Acetaminophen (Percocet 7.5-325MG Tab) 1 tab Q4H PRN PO 12/23/16 12:30 01/06/17 12:29 12/23/16 12:54 1 TAB Objective Vital Signs Date Time Temp Pulse Resp B/P (MAP) Pulse Ox O2 Delivery O2 Flow Rate FiO2 12/23/16 15:02 37.0 73 18 129/77 (94) 93 Room Air 12/23/16 07:15 Room Air 12/23/16 07:12 36.6 68 16 113/69 (84) 95 Room Air 12/22/16 23:45 Room Air 12/22/16 23:05 36.9 72 18 114/74 (87) 96 Room Air Physical Exam General Appearance: WD/WN, no apparent distress Eyes: normal inspection, sclerae normal Neck: supple, no carotid bruits Respiratory/Chest: chest non-tender, lungs clear, normal breath sounds Cardiovascular: regular rate, rhythm, no edema, no murmur Abdomen: normal bowel sounds, non tender, soft Extremities: + calf tenderness, + pertinent finding (left thigh tenderness) Neurologic/Psychiatric: alert, normal mood/affect, oriented x 3 Skin: normal color Notes: Hydrocele present Assessment and Plan The patient is a 65-year-old male that presents to the ED with repeated DVT after his recent Achilles tendon surgery, and failed Xarelto therapy. He has now been transitioned to L quests and his heparin drip has been stopped. He is still complaining of 5-7 out of 10 pain over his right leg, and therefore we changed his pain medication. Hopefully with increase of his pain medication to Percocet 7.5/325 every 4 hours his pain control will improve. 1) DVT - Discontinued Xarelto - Transitioned to Pradaxa - Heparin drip stopped - Emphasized the importance of compliance with novel anticoagulants 2) Pain Control - Initially attempted to control pain with tramadol, morphine, and Percocet - Discontinued tramadol and morphine and now on Percocet 7.5/325 every 4 hours as needed for pain - Teds for swelling - Current barrier to discharge 3) Chronic Medications - Anxiety / Depression - Venlafaxine - HTN - Losartan - Hypothyroidism - Levothyroxine - Peripheral neuropathy - Gabapentin - Gout - Allopurinol 4) DVT Prophylaxis - Pradaxa 5) Code Status - Full Resuscitation History Resident Physician Supervision Note: I was present with Dr. Samuel during the history and exam. I discussed the case with the resident and agree with the findings and plan as documented in the note. Any exceptions or clarifications are listed here. Pt seen and examined at bedside. Persistent aching lower extremity pain described as 'burning' with any activity but fairly well controlled at rest. Reports no lightheadedness, Cp/SOB, palpitations, n/v. General Appearance: WD/WN, no apparent distress Respiratory: chest non-tender, lungs clear, normal breath sounds, no respiratory distress Cardiovascular: normal peripheral pulses, regular rate, rhythm, no murmur, other (trace edema of the LLE) Gastrointestinal: normal bowel sounds, non tender, soft, no organomegaly Assessment/Plan 65 y/o male w/ DVT DVT - on pradaxa, off heparin drip Pain management - increase percocet, d/c tramadol, TEDs when tolerated HTN - continue losartan Hypothyroidism - continue synthroid Neuropathy - continue gabapentin, likely complicating present pain complaint by description. T/C increase neurontin Gout - continue allopurinol FULL CODE
[2016-12-23] MEDS: VENLAFAXINE HCL XR 37.5 MG CAPXR PO SCH (21:33)
[2016-12-23] MEDS: GABAPENTIN 300 MG CAP PO SCH (21:33)
[2016-12-23 22:50] VITALS: BP 131/82; PULSE 76; TEMP 36.8; O2SAT 94
[2016-12-24] MEDS: MoRPHine SULFATE 4 MG/ML 1 ML CARP\\VIAL IV PRN (00:34)
[2016-12-24] MEDS: ZOLPIDEM TARTRATE 5 MG TAB PO PRN (00:34)
[2016-12-24] MEDS: LEVOTHYROXINE 88 MCG TAB PO SCH (05:32)
[2016-12-24 07:20] VITALS: BP 128/72; PULSE 74; TEMP 36.8; O2SAT 98
--- NOTE | 2016-12-24 08:25 | Family Medicine Progress Note ---
Progress Note Date of Service Dec 24, 2016. Resident Tracking Resident Involvement: Resident Care Provided Care Provided: Adult Hospital Medicine History Resident Physician Supervision Note: I was present with Dr. Samuel during the history and exam. I discussed the case with the resident and agree with the findings and plan as documented in the note. Any exceptions or clarifications are listed here. Pain control improved considerably on altered regimen w/ scheduled PO dosing, and just improved in general. less burning/aching pain of the LLE. Reports no QUINTERO , lightheadedness, CP/SOB, palpitations. General Appearance: WD/WN, no apparent distress Respiratory: chest non-tender, lungs clear, normal breath sounds, no respiratory distress Cardiovascular: normal peripheral pulses, regular rate, rhythm, no murmur Extremities: normal range of motion, other (improving TTp of the LLE) Neurologic/Psychiatric: alert, normal mood/affect, oriented x 3 Assessment/Plan 65 y/o male w/ DVT DVT - continue pradaxa, f/u w/ PCP Pain management - improved and tolerating on present pain med regimen HTN - continue losartan Hypothyroidism - continue synthroid Neuropathy - continue gabapentin Gout - continue allopurinol FULL CODE
[2016-12-24] MEDS: ALLOPURINOL 300 MG TAB PO SCH (08:38)
[2016-12-24] MEDS: LOSARTAN POTASSIUM 25 MG TAB PO SCH (08:38)
[2016-12-24] MEDS: MULTIVITAMIN TAB PO SCH (08:38)
[2016-12-24] MEDS: DABIGATRAN ELEXILATE 75 MG CAP PO SCH (08:39)
[2016-12-24] MEDS: CETIRIZINE HCL 10 MG TAB PO SCH (08:40)
[2016-12-24] MEDS: OXYCODONE/ACETAMINOPHEN 7.5-325 TAB PO SCH ×3 (09:41→16:55)
[2016-12-24] MEDS ORDERED: OXYC7.5T65 PO ×2 (11:39→19:35)
[2016-12-24] MEDS ORDERED: PRD75 PO (11:39)
--- NOTE | 2016-12-24 11:49 | Discharge Instructions ---
Discharge Instructions Date of Service Dec 24, 2016. Admission Reason for Admission: Failure Of Outpatient Treatment, Left Leg Dvt Discharge Discharge Diagnosis / Problem: Left Leg DVT Discharge Goals Goal(s): Decrease discomfort, Improve function Activity Recommendations Activity Limitations: resume your previous activity Lifting Limitations: gradually increase as tolerated Shower/Bathe: no limitations . Instructions / Follow-Up Instructions / Follow-Up - Take Pradaxa (Dabigartran Elexilate) 150 mg (2 tabs of 75 mg) twice daily as a blood thinning medication for your history of worsening blood clots - Percocet (Oxycodone/ Acetaminophen) 7.5mg/325mg 1 tab every 4 hours as needed for pain - Resume all other home medications EXCEPT XARELTO (Discontinue Xarelto as this blood thinner did not adequately work for you) - Please follow-up with your family physician in the next week - If you present with any worsening symptoms including worsening left leg pain, shortness of breath, chest pain, fever, chills, abdominal pain, constipation, diarrhea, or any other concerning symptoms please return to the emergency department or be seen by physician Current Hospital Diet Patient's current hospital diet: AHA Diet (Heart Healthy) Discharge Diet Recommended Diet: Regular Diet Pending Studies Studies pending at discharge: no Medical Emergencies . Who to Call and When: Medical Emergencies: If at any time you feel your situation is an emergency, please call 911 immediately. . Non-Emergent Contact Non-Emergency issues call your: Primary Care Provider . . "Provider Documentation" section prepared by Lalo Samuel. . VTE Core Measure Inpt VTE Proph given/why not?: Unfractionated heparin SQ, Other Anticoagulation
[2016-12-24 15:05] VITALS: BP 116/73; PULSE 79; TEMP 36.9; O2SAT 94
[2016-12-24] MEDS ORDERED: PERCOCET HOME PACK PO ONE (19:15)
[2016-12-24 19:22] VITALS: BP 116/73; PULSE 79; TEMP 36.9; O2SAT 94
[2016-12-24] MEDS ORDERED: DABIGATRAN ELEXILATE 75 MG CAP PO SCH (20:00)
--- NOTE | 2016-12-25 18:30 | Discharge Summary ---
Discharge Summary Date of Service Dec 25, 2016. (Lalo Samuel MD) Discharge Summary Admission Date: Dec 20, 2016 at 20:20 Discharge Date: Dec 24, 2016 Discharge Disposition: Home Principal Diagnosis: Deep vein thrombosis Immunizations: Have You Had Influenza Vaccine: Yes Influenza Vaccine Date: Feb 17, 2008 History of Tetanus Vaccine?: No History of Pneumococcal: Yes Pneumococcal Date: Nov 17, 2003 History of Hepatitis B Vaccine: Yes Hepatitis Immunization Date: Nov 16, 1992 (Lalo Samuel MD) Medication Reconciliation New Medications: Oxycodone/Acetaminophen 7.5MG/325MG (Percocet 7.5MG/325MG) Tab 1 TAB PO Q4H PRN for Pain or Fever for 7 Days, TAB PRN PAIN Oxycodone/Acetaminophen 7.5MG/325MG (Percocet 7.5MG/325MG) Tab 1 TAB PO Q4H PRN for Pain, #42 TAB PRN PAIN Dabigatran Elexilate (Pradaxa) 75 Mg Cap 150 MG PO BID for 30 Days, #120 CAP Continued Medications: Allopurinol (Zyloprim) 300 Mg Tab 300 MG PO DAILY, TAB Cetirizine (Zyrtec) 10 Mg Tab 10 MG PO DAILY, TAB Gabapentin (Neurontin) 300 Mg Cap 300 MG PO QPM, CAP Levothyroxine Sodium (Synthroid) 88 Mcg Tab 88 MCG PO QAM Losartan Potassium (Cozaar) 25 Mg Tab 12.5 MG PO QAM, TAB Multivitamin (Multivitamin) Tab 1 TAB PO DAILY, TAB Venlafaxine Hcl (Venlafaxine Extended Rel) 37.5 Mg Cap 37.5 MG PO QPM, CAP Discontinued Medications: Rivaroxaban (Xarelto) 20 Mg Tab 20 MG PO DAILY, TAB Discharge Exam Review of Systems: Constitutional: No fever, No chills Respiratory: No cough, No shortness of breath Cardiovascular: No chest pain (On normal I: 5), No palpitations Abdomen: No pain, No nausea, No vomiting Musculoskeletal: + calf pain, + problem reported (posterior thigh pain, posterior calf pain, and dorsal foot tingling) Neurologic: + numbness/tingling (Dorsal left foot), No paralysis Physical Exam: General Appearance: WD/WN, no apparent distress Eyes: normal inspection, sclerae normal Respiratory/Chest: chest non-tender, lungs clear, normal breath sounds Cardiovascular: regular rate, rhythm, no edema, no gallop, no JVD, no murmur Abdomen / GI: normal bowel sounds, non tender, soft Extremities: + calf tenderness, + pertinent finding (left thigh and calf tenderness to palpation) Neurologic/Psychiatric: alert, normal mood/affect, oriented x 3 (Lalo Samuel MD) Hospital Course The patient is a 65-year-old male with a past medical history of PE and DVT and treatment with Coumadin. The patient had surgery on September 07 for a left Achilles repair, and after the cast was removed, the patient noticed some swelling in his left lower extremity. The patient subsequently went to the hospital and on ultrasound was found to have a lower extremity DVT. He was subsequently placed on Xarelto and discharged. While on the Xarelto he noticed worsening swelling of his left lower extremity, and after referral from his PCP had a ultrasound done in [place] that showed worsening of the DVT. The patient was then sent here to manage [facility]. During his admission we provided pain control as well as transition the patient off of Xarelto and onto Eliquis. On discharge the patient pain appeared to be well controlled with scheduled pain medications, with Percocet 7.5/325 q4h. Total Time Spent: Greater than 30 minutes This includes examination of the patient, discharge planning, medication reconciliation, and communication with other providers. (Lalo Samuel MD) Discharge Instructions Please refer to the electronic Patient Visit Report (Discharge Instructions) for additional information. (Lalo Samuel MD) Additional Copies To Wicho Mcmullen M.D. Assessment/Plan Pt seen and examined in concert with resident physician and agree with assessment and plan as documented above. For full attending documentation, please see accompanying progress note from day of discharge. (Yoni Hill MD)
== END 2016-12-24 20:15 | disposition home or self-care (01) | DRG 301 ==
LOC: C.EDB 16:39 → EEVIPCON 20:20 → C.MSN 20:20 → EDBEDREQSVC 20:23 → ENRESERV 20:30
PROVIDERS: ADMIT Hospitalist; ATTEND Family Medicine
DX: I82.4Z2 Acute embolism and thrombosis of unspecified deep veins of left distal lower extremity (principal); G62.9 Polyneuropathy, unspecified; M1A.9XX0 Chronic gout, unspecified, without tophus (tophi); I10 Essential (primary) hypertension; Z86.718 Personal history of other venous thrombosis and embolism; Z85.51 Personal history of malignant neoplasm of bladder; Z98.1 Arthrodesis status; Z79.01 Long term (current) use of anticoagulants

== ENCOUNTER → 2016-12-30 | Outpatient (CLI) | payer BC ==
[~2016-12-30] MED LIST changes: +ALLO300T2 PO; -ASPI325T4 PO; -FLAX100019 PO; +OXYC7.5T65 PO; -OXYCODONE PO; +PRD75 PO; -RIVA1.5T PO; -RIVA1TAB4 PO; +VENL37.593 PO
[2016-12-30 18:27] LABS: THYROID STIMULATING HORMONE 2.47 uIu/ml (0.300-4.500)
== END | disposition home or self-care (01) ==
LOC: C.LABMFLN 16:20
PROVIDERS: ATTEND Family Medicine
DX: E03.9 Hypothyroidism, unspecified (principal); R60.0 Localized edema

== ENCOUNTER → 2017-01-16 | Outpatient (CLI) | payer BC ==
[2017-01-16 13:44] LABS: HEMATOCRIT 41.8 % (42-52); MEAN CELL VOLUME 95.9 fL (80-100); MEAN CORPUSCULAR HEMOGLOBIN 32.6 pg (25-34); MEAN PLATELET VOLUME 10.1 fL (7.4-10.4); PLATELET COUNT 151 K/uL (130-400); RED BLOOD COUNT 4.36 M/uL (4.7-6.1); WHITE BLOOD COUNT 6.48 K/uL (4.8-10.8)
== END | disposition home or self-care (01) ==
LOC: C.LABMFLN 11:43
PROVIDERS: ATTEND Family Medicine
DX: Z85.51 Personal history of malignant neoplasm of bladder (principal); R07.81 Pleurodynia

== ENCOUNTER → 2017-01-17 | Outpatient (CLI) | payer BC ==
[2017-01-17 13:46] LABS: URINE APPEARANCE CLEAR (CLEAR); URINE BILIRUBIN NEG (NEG); URINE COLOR YELLOW; URINE NITRITE NEG (NEG); URINE SPECIFIC GRAVITY > 1.045 (1.000-1.030); UROBILINOGEN NEG (NEG)
[2017-01-17 13:54] LABS: MANUAL MICROSCOPIC REQUIRED? NO; REVIEW REQ? NO
== END | disposition home or self-care (01) ==
LOC: C.LABMFLN 11:46
PROVIDERS: ATTEND Family Medicine
DX: Z85.51 Personal history of malignant neoplasm of bladder (principal)

== ENCOUNTER → 2017-04-22 | Outpatient (CLI) | payer OTHER, BC | END | disposition home or self-care (01) | LOC: C.LABSPEC 17:04 | PROVIDERS: ATTEND Podiatrist Foot & Ankle Surgery | DX: S90.852A Superficial foreign body, left foot, initial encounter (principal); X58.XXXA Exposure to other specified factors, initial encounter ==

== ENCOUNTER → 2017-04-22 | Outpatient (CLI) | payer OTHER, BC | END | disposition home or self-care (01) | LOC: C.PATHSPEC 17:31 | PROVIDERS: ATTEND Podiatrist Foot & Ankle Surgery | DX: S90.852A Superficial foreign body, left foot, initial encounter (principal); X58.XXXA Exposure to other specified factors, initial encounter ==

== ENCOUNTER → 2017-08-26 | Outpatient (CLI) | payer OTHER ==
[~2017-08-26] MED LIST changes: -OXYC7.5T65 PO
[2017-08-26 13:03] LABS: HEMATOCRIT 43.6 % (42-52); HEMOGLOBIN 14.7 g/dL (14.0-18.0)
[2017-08-26 14:09] LABS: ALT/SGPT 29 U/L (12-78); BLOOD UREA NITROGEN 21 mg/dl (7-18); CALCIUM 8.9 mg/dl (8.5-10.1); CARBON DIOXIDE 28 mmol/L (21-32); CHOLESTEROL 171 mg/dl (0-200); CREATININE 1.23 mg/dl (0.60-1.40); GLUCOSE 93 mg/dl (70-99); POTASSIUM 3.6 mmol/L (3.5-5.1); SODIUM 138 mmol/L (136-145); URIC ACID 5.1 mg/dl (2.6-7.2)
== END | disposition home or self-care (01) ==
LOC: C.LABMFLN 10:24
PROVIDERS: ATTEND Family Medicine
DX: I10 Essential (primary) hypertension (principal); M10.9 Gout, unspecified; R76.0 Raised antibody titer; E78.5 Hyperlipidemia, unspecified; E03.9 Hypothyroidism, unspecified; Z85.51 Personal history of malignant neoplasm of bladder; E55.9 Vitamin D deficiency, unspecified

== ENCOUNTER → 2017-09-01 | Outpatient (CLI) | payer OTHER | END | disposition home or self-care (01) | LOC: C.LABMFLN 09:34 | PROVIDERS: ATTEND Family Medicine | DX: E78.5 Hyperlipidemia, unspecified (principal) ==